=== PATIENT | female | born 1950 | race Hispanic/Latino ===

== ENCOUNTER 2018-03-09 12:39 | Emergency (ER) | payer MEDICARE ==
[2018-03-09] MEDS ORDERED: Ketorolac Tromethamine 60 MG/2 ML VIAL ONE (15:55)
--- NOTE | 2018-03-09 16:47 | ULT ---
RIGHT LOWER EXTREMITY VENOUS ULTRASOUND: COMPARISON: None. HISTORY: Right lower extremity edema and pain. TECHNIQUE: Multiplanar, olivera scale, and color Doppler images were obtained in a right lower extremity venous ult rasound. Spectral analysis of the Doppler waveforms was performed. FINDINGS: The right common femoral vein, profunda femoral vein, superficial femoral vein, and popliteal vein ar e normal in appearance without visible thrombus. These vessels demonstrate normal compression, flow, and augmentation. The posterior tibial vein and greater saphenous vein are also patent. IMPRESSION: No evidence of right lower extremity deep vein thrombosis. POS: [facility]
== END 2018-03-09 16:23 | disposition home or self-care (01) ==
LOC: ERS 12:39
DX: M79.10 Myalgia, unspecified site (principal); E03.9 Hypothyroidism, unspecified; J44.9 Chronic obstructive pulmonary disease, unspecified; E11.9 Type 2 diabetes mellitus without complications; E78.5 Hyperlipidemia, unspecified; I10 Essential (primary) hypertension; Z79.899 Other long term (current) drug therapy; Z79.4 Long term (current) use of insulin
CPT/HCPCS: 96372; J1885

== ENCOUNTER 2018-12-09 09:59 | Outpatient (CLI) | payer MEDICARE ==
--- NOTE | 2018-12-14 06:45 | MMO ---
Bilateral MAMMO Bilat Screen [facility]. CLINICAL HISTORY: Patient is 68 years old and is seen for screening. The patient has no family history of breast cancer. The patient has no personal history of cancer. The patient has a history of right Excisional Biopsy in 1994 - Benign. VIEWS: The views performed were: bilateral craniocaudal with tomosynthesis and bilateral mediolateral oblique with tomosynthesis. FILMS COMPARED: The present examination has been compared to prior imaging studies performed at [facility] on 07/24/2011, 07/26/2012, 11/16/2014 and 11/24/2016. MAMMOGRAM FINDINGS: The breasts are heterogeneously dense, which could obscure a lesion on mammography. There are benign appearing calcifications seen in both breasts. There are no suspicious masses, suspicious calcifications, or new areas of architectural distortion. IMPRESSION: THERE IS NO MAMMOGRAPHIC EVIDENCE OF MALIGNANCY. A ROUTINE FOLLOW-UP MAMMOGRAM IN 1 YEAR IS RECOMMENDED. THE RESULTS OF THIS EXAM WERE SENT TO THE PATIENT. ACR BI-RADS Category 2 - Benign finding MAMMOGRAPHY NOTE: 1. A negative mammogram report should not delay a biopsy if a dominant of clinically suspicious mass is present. 2. Approximately 10% to 15% of breast cancers are not detected by mammography. 3. Adenosis and dense breasts may obscure an underlying neoplasm. Reported by: DALILA WATT MD Electonically Signed: [id number]
== END 2018-12-09 10:00 | disposition home or self-care (01) ==
LOC: BICMAMMO 09:59
PROVIDERS: ATTEND Internal Medicine
DX: Z12.31 Encounter for screening mammogram for malignant neoplasm of breast (principal)
CPT/HCPCS: 77063; 77067

== ENCOUNTER 2018-12-15 23:11 | Inpatient (IN) | payer MEDICARE ==
[2018-12-15] MEDS ORDERED: Ondansetron ODT 4 MG TAB ONE ×2 (23:23→23:24)
[2018-12-15 23:41] LABS: #Eosinphils 0.1 thou/uL (0.0-0.7); #Lymphocytes 2.1 thou/uL (1.20-3.40); #Monocytes 0.5 thou/uL (0.11-0.59); #Neutrophils 6.8 thou/uL (1.40-6.50); %Basophils 0.1 % (0.0-1.0); %Eosinophils 0.7 % (0.0-10.0); %Lymphocytes 21.9 % (21.0-51.0); %Monocytes 5.6 % (0.0-10.0); %Neutrophils 71.6 % (42.0-75.0); Hemoglobin 12.5 g/dL (12.0-16.0); Mean Corpuscular HGB CONC 33.1 g/dL (32.0-36.0); Mean Corpuscular Hemoglobin 29.2 pg (27.0-31.0); Mean Corpuscular Volume 88.1 fL (78.0-98.0); Mean Platelet Volume 8.2 fL (7.4-10.4); Platelet Count 176 thou/uL (130-400); RBC Distribution Width 12.6 % (11.5-14.5); Red Blood Cell (RBC) Count 4.28 mill/uL (4.20-5.40); White Blood Cell (WBC) Count 9.6 thou/uL (4.8-10.8)
--- NOTE | 2018-12-15 23:47 | RAD ---
EXAM: Chest Two Views 12/15/2018 11:44 PM HISTORY: Chest pain COMPARISON: August 17, 2013 FINDINGS: Heart: Stable mild cardiomegaly Pulmonary vessels: Normal. Costophrenic angles: Clear. Lungs: No confluent pneumonia, overt edema, pleural effusion, or other acute process. Pneumothorax: None. Osseous structures:Intact. Additional findings: None. IMPRESSION: Stable cardiomegaly. No acute cardiopulmonary abnormality.
[2018-12-16 00:20] LABS: ALT (SGPT) 12 U/L (8-55); AST (SGOT) 27 U/L (5-34); Albumin 3.9 g/dL (3.4-4.8); Alkaline Phosphatase 89 U/L (40-150); Anion Gap 16 mmol/L (10-20); BUN (Urea Nitrogen) 23 mg/dL (9.8-20.1); Bilirubin, Total 0.2 mg/dL (0.2-1.2); CK (CPK) 48 U/L (29-168); Calc. Creatinine Clearance 0 mL/min (70-130); Calcium 9.9 mg/dL (7.8-10.44); Carbon Dioxide 23 mmol/L (23-31); Chloride 98 mmol/L (98-107); Estimated GFR-MDRD 53; Glucose 166 mg/dL (80-115); Lipase 19 U/L (8-78); Potassium 4.4 mmol/L (3.5-5.1); Protein, Total 7.9 g/dL (6.0-8.3); Sodium 133 mmol/L (136-145)
[2018-12-16] MEDS ORDERED: Morphine 4 MG/ML VIAL ONE ×2 (00:24→03:05)
[2018-12-16] MEDS ORDERED: cefOXitin 2 GM in Sodium Chloride 0.9% 100 ML IVPB SCH (03:30)
[2018-12-16] MEDS ORDERED: Dextrose 5% in Water 1,000 ML IV PRN (04:41)
[2018-12-16] MEDS ORDERED: hydrALAZINE 20 MG/ML VIAL SLOW IVP PRN (04:41)
[2018-12-16] MEDS ORDERED: Ondansetron ODT 4 MG TAB PO PRN (04:41)
[2018-12-16] MEDS ORDERED: Morphine 4 MG/ML VIAL SLOW IVP PRN (04:41)
[2018-12-16] MEDS ORDERED: HumaLOG 300 UNITS/3 ML VIAL SC PRN (04:41)
[2018-12-16] MEDS ORDERED: Dextrose 50% Abboject 50 ML SYRINGE SLOW IVP PRN (04:41)
[2018-12-16] MEDS ORDERED: Morphine 2 MG/ML SYRINGE SLOW IVP PRN (04:41)
[2018-12-16] MEDS ORDERED: PROVENTIL INHALER 6.7 G (200 INHALATIONS) INH PRN (04:44)
[2018-12-16] MEDS ORDERED: Acetaminophen 1,000 MG in Premix Bag 1 BAG IVPB PRN (04:45)
[2018-12-16] MEDS ORDERED: Ketorolac Tromethamine 30 MG/ML VIAL IVP PRN (04:45)
--- NOTE | 2018-12-16 04:59 | HP ---
HISTORY OF PRESENT ILLNESS: Roselyn Dahl is a 68-year-old female, retired. She is diabetic, hypertensive, morbidly obese, and has presented to the emergency room with right upper quadrant pain, nausea and vomiting, 1st episode, she denies prior episodes. Her white count is 9 and hemoglobin 12. Liver function tests are normal. Basic metabolic profile is normal. Ultrasound reveals multiple gallstones, pericholecystic fluid, sonographic Au sign, bile duct 6 mm. ALLERGIES: CODEINE. SOCIAL HISTORY: Tobacco, none. Alcohol, none. MEDICATIONS: 1. Metformin 1000 mg b.i.d. 2. Vitamin E 1000 mg daily. 3. Ventolin inhaler p.r.n. 4. Zocor 10 mg p.m. 5. Singulair 10 mg p.m. 6. Levothyroxine 150 mcg a day. 7. Probiotics daily. 8. Insulin 70/30, 60 units subcu b.i.d. 9. Gabapentin 300 mg t.i.d. 10. Nexium 40 mg daily. 11. Cholecalciferol daily. PAST SURGICAL HISTORY: Partial hysterectomy, shoulder surgery. PAST MEDICAL HISTORY: Morbid obesity, metabolic syndrome, diabetes, hypertension. EKG, , unremarkable. Left bundle-branch block. December 2014, Dr. Álvarez, upper endoscopy. Note in January 2018, Dr. Wright performed a right index finger trigger release. REVIEW OF SYSTEMS: Noncontributory except as above. PHYSICAL EXAMINATION: VITAL SIGNS: Blood pressure 130/78, respiratory rate 18. HEAD, EARS, EYES, NOSE, AND THROAT: Unremarkable. Sclerae nonicteric. SKIN: Nonjaundiced. LUNGS: Clear to auscultation. CARDIAC: Regular rate and rhythm without murmur or gallop. ABDOMEN: Soft. Tenderness in right upper quadrant. EXTREMITIES: Unremarkable. ASSESSMENT AND PLAN: 1. Acute cholecystitis cholelithiasis. Recommend laparoscopic video cholecystectomy. Risks of infection, bleeding, visceral and biliary injury explained, she consents, questions answered. 2. Diabetes mellitus. 3. Hypertension. 4. Morbid obesity. 5. Metabolic syndrome. Job ID: [id number]
[2018-12-16] MEDS ORDERED: Acetaminophen 1,000 MG in Premix Bag 1 BAG IVPB SCH (05:00)
[2018-12-16] MEDS ORDERED: Ketorolac Tromethamine 30 MG/ML VIAL IVP SCH (05:00)
[2018-12-16] MEDS: Sodium Chloride 0.9% 1,000 ML IV SCH ×2 (05:33→14:50)
[2018-12-16] MEDS: Ondansetron PF 4 MG/2 ML Vial IVP PRN ×2 (05:37→10:36)
[2018-12-16] MEDS ORDERED: Levothyroxine 150 MCG TAB PO SCH (06:00)
[2018-12-16 06:02] VITALS: BMI 44.5
--- NOTE | 2018-12-16 07:44 | ULT ---
PRELIMINARY REPORT/[facility]/EMERGENCY AFTER HOURS PROCEDURE: EXAM: US Abdomen Limited, Right Upper Quadrant EXAM DATE/TIME: 12/16/2018 1:49 AM CLINICAL HISTORY: 68 years old, female; Nausea and vomiting; Abdominal pain; Other: Epigastric to ruq TECHNIQUE: Imaging protocol: Real-time ultrasound of the abdomen with image documentation. Examination was focused on the right upper quadrant. COMPARISON: No relevant prior studies available. FINDINGS: Liver: Liver is normal in length with normal echogenicity. Gallbladder: Gallbladder contains 2.3 cm shadowing stone with up to 6 mm wall thickening. Mild pericholecystic fluid. Patient was tender to sonographic palpation over the gallbladder. Common bile duct: Common bile duct is upper normal in width at 6 mm. Pancreas: Pancreas not visualized well. Right kidney: Right kidney 5.2 x 4.2 x 10.7 cm appears normal. Intraperitoneal space: No evidence of free fluid. IMPRESSION: Cholelithiasis with pericholecystic fluid, wall thickening and positive sonographic [place] sign, suspicious for cholecystitis. Thank you for allowing us to participate in the care of your patient. Dictated and Authenticated by: Brian Watkins MD 12/16/2018 2:50 AM Central Time ([place] & [place]) FINAL REPORT EMERGENCY AFTER HOURS RIGHT UPPER QUADRANT ULTRASOUND: HISTORY: Nausea vomiting and abdominal pain. Patient states epigastric and right upper quadrant pain. IMPRESSION: Cholelithiasis with a nonmobile calculus seen in the region of the neck of the gallbladder measuring 2.3 cm. There is gallbladder wall thickening measuring up to 6 mm with trace amount of pericholecystic fluid. Rock Drill Operator also notes a positive sonographic Au's sign. Sonographic findings are suspicious for cholecystitis. Findings are in agreement with the preliminary report by Joel. Code QA Transcribed Date/Time: 12/16/2018 8:08 AM
[2018-12-16] MEDS ORDERED: Valsartan 80 MG TAB PO SCH (09:00)
[2018-12-16] MEDS ORDERED: Famotidine/PF 20 mg/2ml Vial SLOW IVP SCH (09:00)
[2018-12-16] MEDS ORDERED: Hydrochlorothiazide 25 MG TAB PO SCH (09:00)
[2018-12-16] MEDS ORDERED: Non-Formulary Item 1 EACH (Valsartan/Hydrochlorothiazide [Valsartan-Hctz 160-25 Mg Tab] 1 PO SCH (09:00)
[2018-12-16] MEDS ORDERED: Bupivacaine HCl 0.5%/Epinephrine 1:200,000/PF 30 ml Vial ONE (12:07)
[2018-12-16] MEDS ORDERED: Fentanyl 100 MCG/2 ML VIAL ONE (12:12)
[2018-12-16] MEDS ORDERED: Iothalamate Meglumine 60% 50 ML VIAL FS ONE (12:19)
[2018-12-16] MEDS ORDERED: Famotidine/PF 20 mg/2ml Vial ONE (12:27)
[2018-12-16] MEDS ORDERED: Ondansetron PF 4 MG/2 ML Vial ONE (12:27)
[2018-12-16] MEDS ORDERED: Albuterol Sulfate HFA (OR ONLY) ONE (13:36)
[2018-12-16] MEDS ORDERED: SUGAMMADEX SODIUM 200 MG/2 ML VIAL ONE (13:43)
[2018-12-16] MEDS ORDERED: traMADol HCl 50 MG TAB PO PRN ×2 (13:55)
[2018-12-16] MEDS ORDERED: Acetaminophen 500 MG TAB PO PRN (13:55)
[2018-12-16] MEDS ORDERED: Ibuprofen 600 MG TAB PO PRN (13:55)
[2018-12-16] MEDS ORDERED: Meperidine HCl/PF 25 MG/ML VIAL SLOW IVP PRN (13:58)
[2018-12-16] MEDS ORDERED: Promethazine HCl 25 MG/ML VIAL IM PRN (13:58)
[2018-12-16] MEDS ORDERED: Promethazine HCl 25 MG/ML VIAL SLOW IVP PRN (13:58)
[2018-12-16] MEDS ORDERED: Ondansetron HCl/PF 4 MG/2 ML Vial IVP PRN (13:58)
[2018-12-16 17:01] VITALS: BP 119/68; TEMP 98
[2018-12-16] MEDS ORDERED: metFORMIN 500 MG TAB PO SCH (18:00)
[2018-12-16] MEDS ORDERED: Enoxaparin Sodium 40 MG/0.4 ML SYRINGE SC SCH (21:00)
[2018-12-16] MEDS ORDERED: NPH, Human Insulin Isophane 300 UNIT/3 ML VIAL SC SCH (21:00)
[2018-12-16] MEDS ORDERED: Gabapentin 300 MG CAP PO SCH (21:00)
[2018-12-16] MEDS ORDERED: Montelukast Sodium 10 mg Tablet PO SCH (21:00)
[2018-12-16] MEDS ORDERED: Simvastatin 5 MG TAB PO SCH (21:00)
--- NOTE | 2018-12-16 21:02 | OP ---
DATE OF PROCEDURE: 12/16/2018 PREOPERATIVE DIAGNOSES: Acute cholecystitis; cholelithiasis; morbid obesity; and diabetes, insulin dependent. PROCEDURE PERFORMED: Laparoscopic video cholecystectomy. ANESTHESIA: General, local 0.5% Marcaine with epinephrine 30 mL. DESCRIPTION OF PROCEDURE: The patient was taken to the operating room, where under general anesthesia abdomen was prepared with ChloraPrep and draped in routine fashion. Local anesthetic was infiltrated in the skin and subcutaneous tissue at each port site. Supraumbilical midline incision made. Pneumoperitoneum to 15 mmHg was obtained with Veress needle, replaced with a 5 port, video laparoscope inserted. Right subxiphoid incision was made and 11 port placed, right subcostal incision was made at midclavicular entrance line, the 5 port was placed. Liver was fatty. The gallbladder was acutely inflamed, thickened wall, edematous. Fundus decompressed of contents to enable me to grasp it, as it reflected cephalad. Infundibulum dissected free. Critical view obtained. Cystic artery and duct doubly clipped proximally and divided. Gallbladder dissected free from liver bed, obtaining good hemostasis prior to division of the final peritoneal attachments. Gallbladder and contents removed, submitted to Pathology. Good hemostasis ensured with cautery. Irrigant and pneumoperitoneum were evacuated. All instruments were removed. All skin incisions were approximated with interrupted subdermal 4-0 Monocryl and [place] glue applied. Job ID: [id number]
--- NOTE | 2018-12-17 02:55 | DIS ---
DATE OF ADMISSION: 12/16/2018 DATE OF DISCHARGE: 12/16/2018 DISCHARGE DIAGNOSES: Cholecystitis, cholelithiasis, acute chronic cholecystitis, morbid obesity, and insulin dependent diabetes mellitus. PROCEDURES: Ultrasound of the gallbladder, laparoscopic video cholecystectomy. Discharged home with ibuprofen, [id number] Tylenol, Ultram as needed. Resume home medications. Subcu insulin twice a day and other medications, see list. HISTORY: A 68-year-old obese female, presents to the emergency room with acute onset of abdominal pain, ongoing for 24 hours, associated with nausea and vomiting. She underwent laparoscopic video cholecystectomy and received intravenous antibiotics and fluids and postoperatively was discharged home. Diet and activity as tolerated. Follow up in my office in 2 weeks. Job ID: [id number]
[2018-12-17] MEDS ORDERED: Polyethylene Glycol 3350 17 GM Packet PO SCH (09:00)
[2018-12-17] MEDS ORDERED: HumuLIN 70/30 (300 UNITS/3 ML VIAL) SC SCH (09:00)
[2018-12-17] MEDS ORDERED: Fish Oil 1,000 MG CAP PO SCH (09:00)
[2018-12-17] MEDS ORDERED: Lactinex Tablet PO SCH (09:00)
--- NOTE | 2018-12-18 11:07 | EKG ---
Test Reason : Blood Pressure : / mmHG Vent. Rate : 091 BPM Atrial Rate : 091 BPM P-R Int : 134 ms QRS Dur : 142 ms QT Int : 370 ms P-R-T Axes : 046 000 143 degrees QTc Int : 455 ms Normal sinus rhythm Left bundle branch block Abnormal ECG Confirmed by KINGS ORTIZ ([id number]), makeup editor MILTON FONTENOT ([id number]) on 12/18/2018 11:07:07 AM Referred By: Confirmed By:KINGS ORTIZ
== END 2018-12-16 18:00 | disposition home or self-care (01) | DRG 418 ==
LOC: ERS 23:11 → SURG B 12-16 05:01
PROVIDERS: ADMIT Specialist; ATTEND Specialist
PROC: 0FT44ZZ Resection of Gallbladder, Percutaneous Endoscopic Approach (ICD-10-PCS; principal; 2018-12-16)
DX: K80.12 Calculus of gallbladder with acute and chronic cholecystitis without obstruction (principal); Z68.41 Body mass index [BMI] 40.0-44.9, adult; E11.9 Type 2 diabetes mellitus without complications; I10 Essential (primary) hypertension; E66.01 Morbid (severe) obesity due to excess calories; E88.81 Metabolic syndrome and other insulin resistance; Z88.5 Allergy status to narcotic agent; Z79.84 Long term (current) use of oral hypoglycemic drugs; Z79.4 Long term (current) use of insulin; Z79.899 Other long term (current) drug therapy; Z90.711 Acquired absence of uterus with remaining cervical stump; Z98.890 Other specified postprocedural states; R11.2 Nausea with vomiting, unspecified
CPT/HCPCS: 36416; 71046; 76705; 80053; 82550; 83690; 83880; 84484; 85025; 88304; 93005; J0131; J0670; J0694; J1815; J1885; J1956; J2270; J2405; J3010; J3490; Q0162; S0028

== ENCOUNTER 2018-12-25 17:35 | Emergency (ER) | payer MEDICARE ==
[~2018-12-25 17:35] MED LIST: ISOVUE-370 76%-LOCM 1 ML ONE
[2018-12-25 19:04] LABS: #Lymphocytes 1.5 thou/uL (1.20-3.40); #Monocytes 0.6 thou/uL (0.11-0.59); #Neutrophils 8.9 thou/uL (1.40-6.50); %Basophils 0.2 % (0.0-1.0); %Eosinophils 0.4 % (0.0-10.0); %Lymphocytes 13.5 % (21.0-51.0); %Monocytes 5.4 % (0.0-10.0); %Neutrophils 80.6 % (42.0-75.0); Hemoglobin 11.2 g/dL (12.0-16.0); Mean Corpuscular Hemoglobin 28.4 pg (27.0-31.0); Mean Platelet Volume 7.2 fL (7.4-10.4); Platelet Count 305 thou/uL (130-400); RBC Distribution Width 12.9 % (11.5-14.5); Red Blood Cell (RBC) Count 3.95 mill/uL (4.20-5.40); White Blood Cell (WBC) Count 11.1 thou/uL (4.8-10.8)
--- NOTE | 2018-12-25 19:04 | RAD ---
PA AND LATERAL VIEWS CHEST: 12/25/18 HISTORY: Right sided chest pain. Rib pain, shoulder pain. FINDINGS: Comparison made to exam of 12/15/18. The heart size is normal. No focal areas of consolidation, pneumothoraces, or pleural effusions are s een. No acute osseous abnormalities are seen. IMPRESSION: No radiographic evidence of acute cardiopulmonary process. POS: [facility]
[2018-12-25 19:24] LABS: ALT (SGPT) 14 U/L (8-55); AST (SGOT) 17 U/L (5-34); Albumin 3.5 g/dL (3.4-4.8); Alkaline Phosphatase 111 U/L (40-150); Anion Gap 12 mmol/L (10-20); BUN (Urea Nitrogen) 23 mg/dL (9.8-20.1); Bilirubin, Total 0.2 mg/dL (0.2-1.2); Calc. Creatinine Clearance 0 mL/min (70-130); Carbon Dioxide 25 mmol/L (23-31); Chloride 102 mmol/L (98-107); Estimated GFR-MDRD 40; Globulin 3.8 g/dL (2.4-3.5); Glucose 108 mg/dL (80-115); Lipase 19 U/L (8-78); Potassium 3.9 mmol/L (3.5-5.1); Protein, Total 7.3 g/dL (6.0-8.3); Sodium 135 mmol/L (136-145)
[2018-12-25] MEDS ORDERED: Ondansetron PF 4 MG/2 ML Vial ONE (19:45)
[2018-12-25] MEDS ORDERED: Fentanyl 100 MCG/2 ML VIAL ONE (19:45)
[2018-12-25 20:16] LABS: Bilirubin Negative (Negative); Blood, Urine Negative (Negative); Clarity Clear (Clear); Glucose, Urine (Dipstick) Normal (Negative); Leukocyte Negative Leu/uL (Negative); Nitrite Negative (Negative); Protein, Urine (Dipstick) Negative (Neg-Trace); Urobilinogen 6 mg/dL (Less than 2)
--- NOTE | 2018-12-25 20:45 | CT ---
CT PULMONARY ANGIOGRAM WITH IV CONTRAST AND 3D POSTPROCESSIN12/25/18 HISTORY: Right sided chest pain, back pain. Difficulty breathing. Recent cholecystectomy nine days ago. FINDINGS: No filling defects are seen in the pulmonary arterial vasculature to suggest pulmonary embolism. The thoracic aorta is well opacified without aneurysmal dissection. No pleural or pericardial effusions are seen. Upper abdominal tomograms demonstrate changes of cholecystectomy with fluid in the gallblad helga fossa. No pneumothoraces, focal areas of consolidation, lung nodules or masses are seen. There are degenerat jonel changes in the spine. IMPRESSION: 1. No CT evidence of pulmonary embolism. 2. Status post cholecystectomy with fluid in the gallbladder fossa. If there is concern for bile leak, hepatobiliary scan should be performed. POS: [facility]
== END 2018-12-25 22:00 | disposition home or self-care (01) ==
LOC: ERS 17:35
DX: R07.81 Pleurodynia (principal); E03.9 Hypothyroidism, unspecified; J44.9 Chronic obstructive pulmonary disease, unspecified; E11.40 Type 2 diabetes mellitus with diabetic neuropathy, unspecified; E78.5 Hyperlipidemia, unspecified; I10 Essential (primary) hypertension; M19.90 Unspecified osteoarthritis, unspecified site; Z79.4 Long term (current) use of insulin; Z79.899 Other long term (current) drug therapy; Z79.51 Long term (current) use of inhaled steroids
CPT/HCPCS: 36415; 71046; 71275; 80053; 81003; 82550; 83690; 83880; 84484; 85025; 93005; 96360; J2405; J3010; Q9966

== ENCOUNTER 2020-07-12 10:46 | Outpatient (CLI) | payer MEDICARE | END 2020-07-12 10:47 | disposition home or self-care (01) | LOC: BICRAD 10:46 | PROVIDERS: ATTEND Internal Medicine | DX: U07.1 COVID-19 (principal); J12.82 Pneumonia due to coronavirus disease 2019 | CPT/HCPCS: 71046 ==

== ENCOUNTER 2020-08-24 14:18 | Outpatient (CLI) | payer MEDICARE | END 2020-08-24 14:19 | disposition home or self-care (01) | LOC: BICRAD 14:18 | PROVIDERS: ATTEND Internal Medicine | DX: U07.1 COVID-19 (principal); J12.82 Pneumonia due to coronavirus disease 2019 | CPT/HCPCS: 71046 ==

== ENCOUNTER 2020-12-28 14:11 | Outpatient (CLI) | payer MEDICARE ==
[2020-12-29 21:37] LABS: SARS-CoV-2 PCR by NAA Not Detected (NotDetected)
== END 2020-12-28 14:12 | disposition home or self-care (01) ==
LOC: LABBT 14:11
PROVIDERS: ATTEND Internal Medicine
DX: Z01.812 Encounter for preprocedural laboratory examination (principal); Z20.822 Contact with and (suspected) exposure to COVID-19
CPT/HCPCS: U0003; U0005

== ENCOUNTER 2021-01-02 06:54 | Day surgery (SDC) | payer MEDICARE ==
[2020-12-28 16:03] VITALS: BMI 43.2
[2021-01-02] MEDS ORDERED: PROPOFOL 200 MG/20 ML VIAL ONE (08:57)
[2021-01-02] MEDS ORDERED: Lidocaine 1% PF 5 ML VIAL ONE (08:57)
== END 2021-01-02 10:40 | disposition home or self-care (01) ==
LOC: SDC 06:54
PROVIDERS: ATTEND Internal Medicine
PROC: 0DBK8ZX Excision of Ascending Colon, Via Natural or Artificial Opening Endoscopic, Diagnostic (ICD-10-PCS; principal; 2021-01-02)
PROC: 0DBE8ZX Excision of Large Intestine, Via Natural or Artificial Opening Endoscopic, Diagnostic (ICD-10-PCS; 2021-01-02)
PROC: 0DBL8ZX Excision of Transverse Colon, Via Natural or Artificial Opening Endoscopic, Diagnostic (ICD-10-PCS; 2021-01-02)
PROC: 3E0H8GC Introduction of Other Therapeutic Substance into Lower GI, Via Natural or Artificial Opening Endoscopic (ICD-10-PCS; 2021-01-02)
DX: Z12.11 Encounter for screening for malignant neoplasm of colon (principal); D12.2 Benign neoplasm of ascending colon; D12.3 Benign neoplasm of transverse colon; D12.4 Benign neoplasm of descending colon; K64.4 Residual hemorrhoidal skin tags; J44.9 Chronic obstructive pulmonary disease, unspecified; E10.40 Type 1 diabetes mellitus with diabetic neuropathy, unspecified; K21.9 Gastro-esophageal reflux disease without esophagitis; E78.5 Hyperlipidemia, unspecified; I10 Essential (primary) hypertension; E03.9 Hypothyroidism, unspecified; M19.90 Unspecified osteoarthritis, unspecified site; Z86.010 Personal history of colon polyps; Z79.82 Long term (current) use of aspirin; Z79.84 Long term (current) use of oral hypoglycemic drugs; Z79.899 Other long term (current) drug therapy; Z88.5 Allergy status to narcotic agent; Z91.010 Allergy to peanuts
CPT/HCPCS: 36416; J2704

== ENCOUNTER 2021-01-08 18:00 | Outpatient (CLI) | payer MEDICARE | END 2021-01-08 18:01 | disposition home or self-care (01) | LOC: SLEEPLAB 18:00 | PROVIDERS: ATTEND Internal Medicine Critical Care Medicine | DX: G47.33 Obstructive sleep apnea (adult) (pediatric) (principal); K21.9 Gastro-esophageal reflux disease without esophagitis; J45.909 Unspecified asthma, uncomplicated; E11.9 Type 2 diabetes mellitus without complications; I10 Essential (primary) hypertension; R09.02 Hypoxemia; G47.00 Insomnia, unspecified; E66.9 Obesity, unspecified; Z68.41 Body mass index [BMI] 40.0-44.9, adult; Z86.16 Personal history of COVID-19 | CPT/HCPCS: 95806 ==

== ENCOUNTER 2021-01-29 08:37 | Outpatient (CLI) | payer MEDICARE ==
[2021-01-29] MEDS ORDERED: Iopamidol-370 76% 500 ML 1 ML ONE (10:39)
== END 2021-01-29 08:38 | disposition home or self-care (01) ==
LOC: BICCT 08:37
PROVIDERS: ATTEND Internal Medicine
DX: K63.89 Other specified diseases of intestine (principal); K63.5 Polyp of colon; R91.1 Solitary pulmonary nodule; J84.89 Other specified interstitial pulmonary diseases
CPT/HCPCS: 74177; 82565

== ENCOUNTER 2021-02-14 12:45 | Outpatient (CLI) | payer MEDICARE | END 2021-02-14 12:46 | disposition home or self-care (01) | LOC: BICMAMMO 12:45 | PROVIDERS: ATTEND Internal Medicine | DX: Z12.31 Encounter for screening mammogram for malignant neoplasm of breast (principal); Z91.89 Other specified personal risk factors, not elsewhere classified | CPT/HCPCS: 77063; 77067 ==

== ENCOUNTER 2021-02-26 08:09 | Outpatient (CLI) | payer MEDICARE | END 2021-02-26 08:10 | disposition home or self-care (01) | LOC: RAD 08:09 | PROVIDERS: ATTEND Internal Medicine Critical Care Medicine | DX: R06.00 Dyspnea, unspecified (principal); Z90.49 Acquired absence of other specified parts of digestive tract | CPT/HCPCS: 71046 ==

== ENCOUNTER 2021-03-25 11:53 | Outpatient (CLI) | payer MEDICARE ==
[2021-03-25 13:23] LABS: #Basophils 0.1 10x3/uL (0.0-0.2); #Eosinphils 0.1 10x3/uL (0.0-0.5); #Monocytes 0.5 10x3/uL (0.0-1.1); %Basophils 0.5 % (0.0-2.0); %Eosinophils 0.5 % (0.0-6.0); %Lymphocytes 23.7 % (18.0-47.0); %Monocytes 5.4 % (0.0-10.0); %Neutrophils 69.5 % (40.0-75.0); Hemoglobin 14.1 g/dL (12.0-15.5); Mean Corpuscular HGB CONC 31.3 g/dL (32.0-36.0); Mean Corpuscular Hemoglobin 26.3 pg (27.0-33.0); Mean Corpuscular Volume 84.1 fl (81.6-98.3); Mean Platelet Volume 11.1 fl (7.4-10.4); Platelet Count 188 10x3/uL (150-450); RBC Distribution Width 15.6 % (11.5-14.5); Red Blood Cell (RBC) Count 5.36 10x6/uL (3.90-5.03)
[2021-03-25 13:53] LABS: ALT (SGPT) 18 U/L (8-55); AST (SGOT) 23 U/L (5-34); Alkaline Phosphatase 78 U/L (40-110); Anion Gap 15 mmol/L (10-20); BUN (Urea Nitrogen) 29 mg/dL (9.8-20.1); Bilirubin, Total 0.6 mg/dL (0.2-1.2); Calc. Creatinine Clearance 0 mL/min (70-130); Calcium 9.6 mg/dL (7.8-10.44); Carbon Dioxide 26 mmol/L (23-31); Chloride 100 mmol/L (98-107); Globulin 3.4 g/dL (2.4-3.5); Glucose 106 mg/dL (83-110); Protein, Total 7.4 g/dL (5.8-8.1); Sodium 137 mmol/L (136-145)
[2021-03-25 22:05] LABS: SARS-CoV-2 PCR by NAA Not Detected (NotDetected)
== END 2021-03-25 11:54 | disposition home or self-care (01) ==
LOC: LABBT 11:53
PROVIDERS: ATTEND Internal Medicine Cardiovascular Disease
DX: Z01.812 Encounter for preprocedural laboratory examination (principal); R94.39 Abnormal result of other cardiovascular function study; Z20.822 Contact with and (suspected) exposure to COVID-19
CPT/HCPCS: 80053; 85025; U0003; U0005

== ENCOUNTER 2021-05-27 10:05 | Outpatient (CLI) | payer MEDICARE ==
[2021-05-27 11:07] LABS: #Basophils 0.1 10x3/uL (0.0-0.2); #Eosinphils 0.1 10x3/uL (0.0-0.5); #Monocytes 0.5 10x3/uL (0.0-1.1); #Neutrophils 6.1 10x3/uL (1.5-8.4); %Basophils 0.7 % (0.0-2.0); %Eosinophils 0.6 % (0.0-6.0); %Lymphocytes 21.7 % (18.0-47.0); %Monocytes 5.8 % (0.0-10.0); %Neutrophils 70.9 % (40.0-75.0); Hemoglobin 13.9 g/dL (12.0-15.5); Mean Corpuscular HGB CONC 31.2 g/dL (32.0-36.0); Mean Corpuscular Hemoglobin 26.9 pg (27.0-33.0); Mean Corpuscular Volume 86.3 fl (81.6-98.3); Mean Platelet Volume 10.7 fl (7.4-10.4); Platelet Count 195 10x3/uL (150-450); RBC Distribution Width 17.3 % (11.5-14.5); Red Blood Cell (RBC) Count 5.17 10x6/uL (3.90-5.03); White Blood Cell (WBC) Count 8.6 10x3/uL (3.5-10.5)
[2021-05-27 11:39] LABS: Anion Gap 14 mmol/L (10-20); BUN (Urea Nitrogen) 31 mg/dL (9.8-20.1); Calc. Creatinine Clearance 0 mL/min (70-130); Calcium 9.3 mg/dL (7.8-10.44); Carbon Dioxide 27 mmol/L (23-31); Chloride 102 mmol/L (98-107); Glucose 93 mg/dL (83-110); Potassium 4.1 mmol/L (3.5-5.1); Sodium 139 mmol/L (136-145)
[2021-05-27 15:43] LABS: Hemoglobin A1c 6.1 % (4.0-6.0)
[2021-05-27 19:25] LABS: SARS-CoV-2 PCR by NAA Not Detected (NotDetected)
== END 2021-05-27 10:06 | disposition home or self-care (01) ==
LOC: LABBT 10:05
PROVIDERS: ATTEND Internal Medicine Cardiovascular Disease
DX: Z01.818 Encounter for other preprocedural examination (principal); K63.89 Other specified diseases of intestine; Z20.822 Contact with and (suspected) exposure to COVID-19
CPT/HCPCS: 80048; 83036; 85025; 93005; U0003; U0005; 93010

== ENCOUNTER 2021-05-27 10:15 | Inpatient (IN) | payer MEDICARE ==
[2021-05-22 15:29] VITALS: BMI 45.0
[2021-05-30] MEDS ORDERED: Fentanyl 250 MCG/5 ML VIAL ONE (06:36)
[2021-05-30] MEDS ORDERED: SUGAMMADEX SODIUM 200 MG/2 ML VIAL ONE (06:36)
[2021-05-30] MEDS ORDERED: Midazolam HCl 2 mg/2 ml Vial ONE (06:37)
[2021-05-30] MEDS ORDERED: Fentanyl 100 MCG/2 ML VIAL ONE ×3 (06:37→11:46)
[2021-05-30] MEDS ORDERED: Sodium Chloride 0.9% 100 ML ONE (07:17)
[2021-05-30] MEDS ORDERED: cefOXitin 2 GM VIAL ONE (07:17)
[2021-05-30] MEDS ORDERED: Ketamine 50 MG/ML (10ML VIAL) ONE (07:32)
[2021-05-30] MEDS ORDERED: Phenylephrine 10 MG/ML VIAL ONE (07:32)
[2021-05-30] MEDS ORDERED: Albumin 5% 0 ML ONE (07:32)
[2021-05-30] MEDS ORDERED: Bupivacaine HCl 0.5%/Epinephrine 1:200,000/PF 30 ml Vial ONE (07:36)
[2021-05-30] MEDS ORDERED: PHENYLEPHRINE-NS 100 MCG/ML 10 ML SYRINGE ONE (07:36)
[2021-05-30] MEDS ORDERED: Dexamethasone 20 MG/5 ML VIAL ONE (07:36)
[2021-05-30] MEDS ORDERED: Glycopyrrolate 0.2 MG/ML 5 ML SYRINGE ONE (07:36)
[2021-05-30] MEDS ORDERED: Albuterol Sulfate HFA (OR ONLY) ONE (07:36)
[2021-05-30] MEDS ORDERED: PROPOFOL 200 MG/20 ML VIAL ONE (07:36)
[2021-05-30] MEDS ORDERED: Lidocaine 1% PF 5 ML VIAL ONE (07:36)
[2021-05-30] MEDS ORDERED: Rocuronium Bromide 10 MG/ML (10ML VIAL) ONE (07:36)
[2021-05-30] MEDS ORDERED: Ondansetron PF 4 MG/2 ML Vial ONE (07:36)
[2021-05-30] MEDS ORDERED: ceFOXitin 1 GM VIAL ONE (09:36)
[2021-05-30] MEDS ORDERED: Promethazine HCl 25 MG/ML VIAL IM PRN ×3 (10:25→15:29)
[2021-05-30] MEDS ORDERED: Promethazine HCl 25 MG/ML VIAL IVPB PRN (10:25)
[2021-05-30] MEDS ORDERED: Ondansetron HCl/PF 4 MG/2 ML Vial IVP PRN (10:25)
[2021-05-30] MEDS ORDERED: diphenhydrAMINE 50 MG/ML VIAL IVP PRN (10:26)
[2021-05-30] MEDS ORDERED: diphenhydrAMINE 50 MG/ML VIAL IM PRN (10:26)
[2021-05-30] MEDS ORDERED: diphenhydrAMINE 25 MG CAP PO PRN (10:26)
[2021-05-30] MEDS ORDERED: Naloxone HCl 0.4 mg/ml Vial IV PRN (10:26)
[2021-05-30] MEDS ORDERED: fentaNYL Citrate/PF 2,000 MCG in Sodium Chloride 0.9% 60 ML IV PRN (10:26)
[2021-05-30] MEDS ORDERED: Ondansetron PF 4 MG/2 ML Vial IVP PRN (10:26)
[2021-05-30] MEDS ORDERED: Zolpidem Tartrate 5 MG TAB PO PRN (10:26)
[2021-05-30] MEDS ORDERED: Communication Order-Pharmacy FS SCH (10:30)
[2021-05-30] MEDS ORDERED: Promethazine HCl 25 MG/ML VIAL ONE (10:59)
[2021-05-30] MEDS ORDERED: Insulin Regular 300 UNITS/3 ML VIAL ONE (12:04)
[2021-05-30] MEDS ORDERED: hydrALAZINE 20 MG/ML VIAL SLOW IVP PRN (15:29)
[2021-05-30] MEDS: Sodium Chloride 0.9% 1,000 ML IV SCH (15:59)
[2021-05-30] MEDS: cefOXitin 2 GM in Sodium Chloride 0.9% 100 ML IVPB SCH (16:43)
[2021-05-30] MEDS ORDERED: Dextrose 50% Abboject 50 ML SYRINGE SLOW IVP PRN (17:13)
[2021-05-30] MEDS ORDERED: Dextrose 5% in Water 1,000 ML IV PRN (17:13)
[2021-05-30] MEDS: HumaLOG 300 UNITS/3 ML VIAL SC PRN ×2 (17:38→21:14)
[2021-05-30] MEDS: Montelukast Sodium 10 mg Tablet PO SCH (20:41)
[2021-05-30] MEDS: Famotidine 20 MG TAB PO SCH (20:41)
[2021-05-30] MEDS: Famotidine/PF 20 mg/2ml Vial SLOW IVP SCH (20:42)
[2021-05-31] MEDS: cefOXitin 2 GM in Sodium Chloride 0.9% 100 ML IVPB SCH (01:25)
[2021-05-31] MEDS: Levothyroxine 150 MCG TAB PO SCH (05:56)
[2021-05-31] MEDS: HumaLOG 300 UNITS/3 ML VIAL SC PRN ×4 (05:57→21:22)
[2021-05-31] MEDS: Sodium Chloride 0.9% 1,000 ML IV SCH ×3 (06:42→21:28)
[2021-05-31 07:01] LABS: #Lymphocytes 1.1 thou/uL (1.20-3.40); #Monocytes 0.9 thou/uL (0.11-0.59); %Basophils 0.1 % (0.0-1.0); %Eosinophils 0.1 % (0.0-10.0); %Lymphocytes 8.1 % (21.0-51.0); %Monocytes 6.6 % (0.0-10.0); %Neutrophils 85.2 % (42.0-75.0); Hemoglobin 12.4 g/dL (12.0-16.0); Mean Corpuscular HGB CONC 31.6 g/dL (32.0-36.0); Mean Corpuscular Hemoglobin 27.7 pg (27.0-31.0); Mean Corpuscular Volume 87.7 fL (78.0-98.0); Mean Platelet Volume 7.9 fL (7.4-10.4); Platelet Count 169 thou/uL (130-400); RBC Distribution Width 15.2 % (11.5-14.5); Red Blood Cell (RBC) Count 4.47 mill/uL (4.20-5.40); White Blood Cell (WBC) Count 12.9 thou/uL (4.8-10.8)
[2021-05-31 07:22] LABS: Anion Gap 15 mmol/L (10-20); BUN (Urea Nitrogen) 15 mg/dL (9.8-20.1); Calc. Creatinine Clearance 77 mL/min (70-130); Calcium 8.4 mg/dL (7.8-10.44); Carbon Dioxide 20 mmol/L (23-31); Chloride 103 mmol/L (98-107); Glucose 274 mg/dL (83-110); Potassium 4.3 mmol/L (3.5-5.1); Sodium 134 mmol/L (136-145)
[2021-05-31] MEDS: Famotidine 20 MG TAB PO SCH ×2 (08:19→21:19)
[2021-05-31] MEDS: Enoxaparin Sodium 40 MG/0.4 ML SYRINGE SC SCH (08:19)
[2021-05-31] MEDS: Famotidine/PF 20 mg/2ml Vial SLOW IVP SCH ×2 (08:59→21:20)
[2021-05-31] MEDS ORDERED: FLU VACC QS2021-22(65YR UP)/PF 240 MCG/0.7 ML SYRINGE IM ONE (16:00)
[2021-05-31] MEDS: Montelukast Sodium 10 mg Tablet PO SCH (21:20)
[2021-05-31] MEDS: Gabapentin 100 MG CAP PO SCH (21:20)
[2021-06-01] MEDS: Levothyroxine 150 MCG TAB PO SCH (05:51)
[2021-06-01] MEDS: HumaLOG 300 UNITS/3 ML VIAL SC PRN ×5 (05:51→20:51)
[2021-06-01] MEDS: Gabapentin 100 MG CAP PO SCH ×4 (08:38→20:21)
[2021-06-01] MEDS: Enoxaparin Sodium 40 MG/0.4 ML SYRINGE SC SCH (08:38)
[2021-06-01] MEDS: Famotidine 20 MG TAB PO SCH ×2 (08:39→20:21)
[2021-06-01] MEDS: Famotidine/PF 20 mg/2ml Vial SLOW IVP SCH ×2 (08:42→20:21)
[2021-06-01] MEDS: Sodium Chloride 0.9% 1,000 ML IV SCH (14:24)
[2021-06-01] MEDS: Montelukast Sodium 10 mg Tablet PO SCH (20:21)
[2021-06-01] MEDS ORDERED: HumuLIN 70/30 (300 UNITS/3 ML VIAL) SC SCH (21:00)
[2021-06-01] MEDS: Ondansetron PF 4 MG/2 ML Vial IVP PRN (23:53)
[2021-06-02 05:17] LABS: #Lymphocytes 1.5 thou/uL (1.20-3.40); #Monocytes 0.7 thou/uL (0.11-0.59); #Neutrophils 10.9 thou/uL (1.40-6.50); %Eosinophils 0.2 % (0.0-10.0); %Lymphocytes 11.7 % (21.0-51.0); %Monocytes 5.2 % (0.0-10.0); %Neutrophils 82.9 % (42.0-75.0); Hemoglobin 11.9 g/dL (12.0-16.0); Mean Corpuscular HGB CONC 33.1 g/dL (32.0-36.0); Mean Corpuscular Hemoglobin 28.9 pg (27.0-31.0); Mean Corpuscular Volume 87.2 fL (78.0-98.0); Mean Platelet Volume 7.9 fL (7.4-10.4); Platelet Count 160 thou/uL (130-400); Red Blood Cell (RBC) Count 4.13 mill/uL (4.20-5.40); White Blood Cell (WBC) Count 13.2 thou/uL (4.8-10.8)
[2021-06-02] MEDS: Levothyroxine 150 MCG TAB PO SCH (05:39)
[2021-06-02] MEDS: Sodium Chloride 0.9% 1,000 ML IV SCH (05:39)
[2021-06-02] MEDS: HumaLOG 300 UNITS/3 ML VIAL SC PRN ×3 (05:44→16:59)
[2021-06-02 05:46] LABS: Anion Gap 11 mmol/L (10-20); BUN (Urea Nitrogen) 12 mg/dL (9.8-20.1); Calc. Creatinine Clearance 95 mL/min (70-130); Calcium 8.5 mg/dL (7.8-10.44); Carbon Dioxide 25 mmol/L (23-31); Chloride 100 mmol/L (98-107); Glucose 280 mg/dL (83-110); Potassium 4.3 mmol/L (3.5-5.1); Sodium 132 mmol/L (136-145)
[2021-06-02] MEDS: Famotidine/PF 20 mg/2ml Vial SLOW IVP SCH ×2 (08:21→21:38)
[2021-06-02] MEDS: Enoxaparin Sodium 40 MG/0.4 ML SYRINGE SC SCH (08:21)
[2021-06-02] MEDS: Gabapentin 100 MG CAP PO SCH ×3 (08:21→21:39)
[2021-06-02] MEDS: Famotidine 20 MG TAB PO SCH ×2 (08:21→21:38)
[2021-06-02] MEDS: Ondansetron PF 4 MG/2 ML Vial IVP PRN ×2 (08:21→21:51)
[2021-06-02] MEDS: HumuLIN 70/30 (300 UNITS/3 ML VIAL) SC SCH ×2 (08:23→21:39)
[2021-06-02] MEDS ORDERED: Fentanyl 100 MCG/2 ML VIAL SLOW IVP PRN (09:59)
[2021-06-02] MEDS ORDERED: Sodium Chloride 0.9% 1,000 ML IV SCH (10:00)
[2021-06-02] MEDS ORDERED: Digoxin 0.5 MG/2 ML AMP ONE (11:19)
[2021-06-02] MEDS: Acetaminophen 325 MG TAB PO SCH ×2 (12:07→17:00)
[2021-06-02] MEDS: Montelukast Sodium 10 mg Tablet PO SCH (21:39)
[2021-06-02] MEDS: traMADol HCl 50 MG TAB PO PRN (21:51)
[2021-06-03] MEDS: Acetaminophen 325 MG TAB PO SCH ×4 (01:30→16:21)
[2021-06-03] MEDS: Levothyroxine 150 MCG TAB PO SCH (05:20)
[2021-06-03] MEDS: Gabapentin 100 MG CAP PO SCH ×3 (08:21→22:34)
[2021-06-03] MEDS: Famotidine 20 MG TAB PO SCH ×2 (08:22→22:34)
[2021-06-03] MEDS: Famotidine/PF 20 mg/2ml Vial SLOW IVP SCH ×2 (08:22→22:57)
[2021-06-03] MEDS: Enoxaparin Sodium 40 MG/0.4 ML SYRINGE SC SCH (08:22)
[2021-06-03] MEDS: traMADol HCl 50 MG TAB PO PRN ×3 (08:31→22:35)
[2021-06-03] MEDS: Ondansetron PF 4 MG/2 ML Vial IVP PRN ×2 (08:32→20:35)
[2021-06-03] MEDS: HumuLIN 70/30 (300 UNITS/3 ML VIAL) SC SCH ×2 (08:37→22:55)
[2021-06-03] MEDS ORDERED: Furosemide 40 MG/4 ML VIAL SLOW IVP SCH (09:15)
[2021-06-03 10:33] LABS: Anion Gap 11 mmol/L (10-20); BUN (Urea Nitrogen) 11 mg/dL (9.8-20.1); Calc. Creatinine Clearance 110 mL/min (70-130); Calcium 8.3 mg/dL (7.8-10.44); Carbon Dioxide 29 mmol/L (23-31); Chloride 98 mmol/L (98-107); Glucose 189 mg/dL (83-110); Potassium 3.6 mmol/L (3.5-5.1); Sodium 134 mmol/L (136-145)
[2021-06-03] MEDS: HumaLOG 300 UNITS/3 ML VIAL SC PRN ×2 (12:37→16:22)
[2021-06-03] MEDS: Montelukast Sodium 10 mg Tablet PO SCH (22:34)
[2021-06-04] MEDS: Acetaminophen 325 MG TAB PO SCH ×3 (00:10→12:09)
[2021-06-04] MEDS: Levothyroxine 150 MCG TAB PO SCH (05:40)
[2021-06-04] MEDS: Ondansetron PF 4 MG/2 ML Vial IVP PRN (05:40)
[2021-06-04] MEDS: HumaLOG 300 UNITS/3 ML VIAL SC PRN ×2 (05:58→12:09)
[2021-06-04] MEDS ORDERED: Aspirin Chewable 81 MG TAB PO SCH (09:00)
[2021-06-04] MEDS: HumuLIN 70/30 (300 UNITS/3 ML VIAL) SC SCH (09:30)
[2021-06-04] MEDS: Famotidine 20 MG TAB PO SCH (09:31)
[2021-06-04] MEDS: Enoxaparin Sodium 40 MG/0.4 ML SYRINGE SC SCH (09:31)
[2021-06-04] MEDS: Famotidine/PF 20 mg/2ml Vial SLOW IVP SCH (09:31)
[2021-06-04] MEDS: Gabapentin 100 MG CAP PO SCH ×2 (09:31→15:53)
[2021-06-04 15:55] VITALS: BP 122/75; TEMP 97.6
== END 2021-06-04 18:40 | disposition home health service (06) | DRG 330 ==
LOC: SURG A 05-30 05:51 → SJJU 05-30 15:37
PROVIDERS: ADMIT Surgery; ATTEND Surgery
PROC: 0DBG0ZZ Excision of Left Large Intestine, Open Approach (ICD-10-PCS; principal; 2021-05-30)
PROC: 0D1B0Z4 Bypass Ileum to Cutaneous, Open Approach (ICD-10-PCS; 2021-05-30)
PROC: 0WJG4ZZ Inspection of Peritoneal Cavity, Percutaneous Endoscopic Approach (ICD-10-PCS; 2021-05-30)
PROC: 5A09357 Assistance with Respiratory Ventilation, Less than 24 Consecutive Hours, Continuous Positive Airway Pressure (ICD-10-PCS; 2021-05-30)
DX: K63.5 Polyp of colon (principal); K56.7 Ileus, unspecified; Z68.42 Body mass index [BMI] 45.0-49.9, adult; Z20.822 Contact with and (suspected) exposure to COVID-19; E66.8 Other obesity; H91.90 Unspecified hearing loss, unspecified ear; E78.00 Pure hypercholesterolemia, unspecified; I10 Essential (primary) hypertension; J45.909 Unspecified asthma, uncomplicated; K21.9 Gastro-esophageal reflux disease without esophagitis; M06.9 Rheumatoid arthritis, unspecified; M19.90 Unspecified osteoarthritis, unspecified site; M81.0 Age-related osteoporosis without current pathological fracture; E03.9 Hypothyroidism, unspecified; E78.5 Hyperlipidemia, unspecified; I25.10 Atherosclerotic heart disease of native coronary artery without angina pectoris; E11.65 Type 2 diabetes mellitus with hyperglycemia; G47.33 Obstructive sleep apnea (adult) (pediatric); R09.02 Hypoxemia; Z53.31 Laparoscopic surgical procedure converted to open procedure; Z79.899 Other long term (current) drug therapy; Z79.84 Long term (current) use of oral hypoglycemic drugs; Z79.890 Hormone replacement therapy; Z79.4 Long term (current) use of insulin; Z90.710 Acquired absence of both cervix and uterus; Z90.49 Acquired absence of other specified parts of digestive tract; Z80.1 Family history of malignant neoplasm of trachea, bronchus and lung; Z83.3 Family history of diabetes mellitus; Z82.49 Family history of ischemic heart disease and other diseases of the circulatory system; Z82.3 Family history of stroke; Z88.5 Allergy status to narcotic agent; Z91.010 Allergy to peanuts; Z91.048 Other nonmedicinal substance allergy status; Z99.89 Dependence on other enabling machines and devices; Z99.81 Dependence on supplemental oxygen; Z01.818 Encounter for other preprocedural examination
CPT/HCPCS: 36415; 36416; 71045; 80048; 83036; 85025; 88309; 93005; 93010; A4649; C1713; C1776; J0694; J1100; J1650; J1815; J1940; J2250; J2370; J2405; J2550; J2704; J3010; J3490; J7050; P9045; S0028; U0003; U0005

== ENCOUNTER 2022-04-08 10:39 | Outpatient (CLI) | payer OTHER, MEDICARE | END 2022-04-08 10:40 | disposition home or self-care (01) | LOC: BICMAMMO 10:39 | PROVIDERS: ATTEND Internal Medicine | DX: Z12.31 Encounter for screening mammogram for malignant neoplasm of breast (principal); Z91.89 Other specified personal risk factors, not elsewhere classified | CPT/HCPCS: 77063; 77067 ==

== ENCOUNTER 2023-05-18 09:34 | Outpatient (CLI) | payer OTHER | END 2023-05-18 09:35 | disposition home or self-care (01) | LOC: BICMAMMO 09:34 | PROVIDERS: ATTEND Internal Medicine | DX: Z12.31 Encounter for screening mammogram for malignant neoplasm of breast (principal); M85.89 Other specified disorders of bone density and structure, multiple sites; Z91.89 Other specified personal risk factors, not elsewhere classified | CPT/HCPCS: 77063; 77067; 77080 ==